=== PATIENT | female | born 1985 | race Caucasian/White ===

== ENCOUNTER → 2017-03-04 | Outpatient (CLI) | payer OTHER | END | disposition home or self-care (01) | LOC: C.LAB1850 16:03 | PROVIDERS: ATTEND Physician Assistant | DX: O09.299 Supervision of pregnancy with other poor reproductive or obstetric history, unspecified trimester (principal); Z3A.00 Weeks of gestation of pregnancy not specified ==

== ENCOUNTER → 2017-03-24 | Outpatient (CLI) | payer OTHER ==
[2017-03-24 16:09] LABS: URINE APPEARANCE CLEAR (CLEAR); URINE BILIRUBIN NEG (NEG); URINE COLOR YELLOW; URINE NITRITE NEG (NEG); URINE SPECIFIC GRAVITY 1.012 (1.000-1.030); UROBILINOGEN NEG (NEG)
[2017-03-24 16:22] LABS: MANUAL MICROSCOPIC REQUIRED? NO; REVIEW REQ? NO
== END | disposition home or self-care (01) ==
LOC: C.LABSPEC 15:41
PROVIDERS: ATTEND Obstetrics & Gynecology
DX: O09.299 Supervision of pregnancy with other poor reproductive or obstetric history, unspecified trimester (principal); Z3A.00 Weeks of gestation of pregnancy not specified

== ENCOUNTER → 2017-03-31 | Outpatient (CLI) | payer OTHER ==
[2017-03-31 17:48] LABS: BASO % 0.3 %; BASO ABS # 0.03 K/uL (0-0.2); COMPLETE YES; EOS % 0.7 %; HEMATOCRIT 38.9 % (37-47); IG% 0.3 %; LYMPH % 14.8 %; LYMPH ABS # 1.65 K/uL (1.2-3.4); MEAN CELL VOLUME 92.8 fL (80-100); MEAN CORPUSCULAR HEMOGLOBIN 31.7 pg (25-34); MEAN CORPUSCULAR HGB CONC 34.2 g/dl (32-36); MEAN PLATELET VOLUME 10.6 fL (7.4-10.4); MONO % 5.5 %; NEUT % 78.4 %; PLATELET COUNT 223 K/uL (130-400); RED BLOOD COUNT 4.19 M/uL (4.2-5.4); WHITE BLOOD COUNT 11.18 K/uL (4.8-10.8)
[2017-04-03 01:46] LABS: CHLAMYDIA TRACH RNA*** NOT DETECTED (NOT DETECTED); GC (NEIS GONORRHOEAE)RNA** NOT DETECTED (NOT DETECTED)
== END | disposition home or self-care (01) ==
LOC: C.LAB1850 16:18
PROVIDERS: ATTEND Obstetrics & Gynecology
DX: O09.299 Supervision of pregnancy with other poor reproductive or obstetric history, unspecified trimester (principal); Z3A.00 Weeks of gestation of pregnancy not specified

== ENCOUNTER → 2017-05-05 | Outpatient (CLI) | payer OTHER ==
[2017-05-05 19:08] LABS: GTGD 50 Grams
== END | disposition home or self-care (01) ==
LOC: C.LAB1850 14:22
PROVIDERS: ATTEND Obstetrics & Gynecology
DX: Z34.82 Encounter for supervision of other normal pregnancy, second trimester (principal); Z3A.00 Weeks of gestation of pregnancy not specified

== ENCOUNTER → 2017-06-05 | Outpatient (CLI) | payer OTHER ==
[~2017-06-05] MED LIST: PREN1TAB29
== END | disposition home or self-care (01) ==
LOC: C.LAB1850 11:18
PROVIDERS: ATTEND Obstetrics & Gynecology
DX: R39.9 Unspecified symptoms and signs involving the genitourinary system (principal)

== ENCOUNTER → 2017-08-01 | Outpatient (CLI) | payer OTHER ==
[2017-08-01 13:11] LABS: HEMATOCRIT 34.4 % (37-47); HEMOGLOBIN 11.7 g/dL (12.0-16.0)
== END | disposition home or self-care (01) ==
LOC: C.LAB1850 12:01
PROVIDERS: ATTEND Obstetrics & Gynecology
DX: Z34.83 Encounter for supervision of other normal pregnancy, third trimester (principal)

== ENCOUNTER → 2017-08-01 | Outpatient (CLI) | payer OTHER | END | disposition home or self-care (01) | LOC: C.LABSPEC 15:50 | PROVIDERS: ATTEND Obstetrics & Gynecology | DX: Z34.83 Encounter for supervision of other normal pregnancy, third trimester (principal) ==

== ENCOUNTER → 2017-09-08 | Outpatient (CLI) | payer OTHER | END | disposition home or self-care (01) | LOC: C.LAB 11:52 | PROVIDERS: ATTEND Obstetrics & Gynecology | DX: Z34.83 Encounter for supervision of other normal pregnancy, third trimester (principal) ==

== ENCOUNTER → 2017-09-25 | Outpatient (CLI) | payer OTHER | END | disposition home or self-care (01) | LOC: C.LABSPEC 15:54 | PROVIDERS: ATTEND Obstetrics & Gynecology | DX: O09.299 Supervision of pregnancy with other poor reproductive or obstetric history, unspecified trimester (principal); Z3A.00 Weeks of gestation of pregnancy not specified ==

== ENCOUNTER 2020-06-16 20:19 | Inpatient (IN) ==
[2020-06-16] MEDS ORDERED: OXYTOCIN 30 UNITS/500 ML BAG IV PRN (20:57)
[2020-06-16] MEDS ORDERED: LACTATED RINGER'S 1,000 ML IV PRN (20:57)
[2020-06-16] MEDS ORDERED: METHYLERGONOVINE MALEATE 0.2 MG/ML AMP IM PRN (20:57)
[2020-06-16] MEDS ORDERED: SODIUM CHLORIDE 0.9% INJ 10 ML VIAL ONE (21:04)
[2020-06-16] MEDS ORDERED: ePHEDrine sulfate 50 MG/ML AMP ONE (21:04)
[2020-06-16] MEDS ORDERED: BUPIVACAINE 0.25% 30 ML VIAL ONE (21:05)
[2020-06-16] MEDS ORDERED: fentaNYL citrate 100 MCG/2 ML VIAL ONE (21:05)
[2020-06-16] MEDS ORDERED: fentaNYL 2MCG/ML ROPIVACAINE 1.25MG/ML 100 ML BAG EPI ONE (21:06)
[2020-06-16 21:24] LABS: Hemoglobin 12.2 g/dL (12.0-16.0); Mean Corpuscular Hemoglobin 33.1 pg (25-34); Mean Corpuscular Hgb Conc 34.9 g/dL (32-36); Mean Corpuscular Volume 94.9 fL (80-100); Mean Platelet Volume 9.6 fL (7.4-10.4); Platelet Count 284 K/uL (130-400); RDW Coefficient of Variation 13.4 % (11.5-14.5); RDW Standard Deviation 46.5 fL (36.4-46.3); Red Blood Count 3.69 M/uL (4.2-5.4); White Blood Count 19.43 K/uL (4.8-10.8)
--- NOTE | 2020-06-16 22:07 | Anesthesiology Consultation ---
Date of Service June 16, 2020 Assessment & Plan Chart Review Chart Review: Acceptable Risk for Labor Epidural Consults Requested none History Allergies Allergy/AdvReac Type Severity Reaction Status Date / Time No Known Drug Allergies Allergy Verified 06/14/20 10:08 Medications Home Medications Medication Instructions Recorded Confirmed Last Taken prenat.vits,angeline,oih-[id number]-oikgh 1 tab PO DAILY 11/11/19 06/14/20 Unknown ascorbic acid (vitamin C) PO DAILY 05/10/20 06/14/20 Unknown ferrous sulfate PO DAILY 05/10/20 06/14/20 Unknown nystatin-triamcinolone 100,000 1 applic TOPICAL DAILY #30 g 05/24/20 06/14/20 Unknown unit/gram-0.1 % topical ointment valacyclovir 500 mg tablet 500 mg PO DAILY #30 tab 05/24/20 06/14/20 Unknown docusate sodium PO 06/14/20 06/14/20 Unknown Active Medications Generic Name Dose Route Start Last Admin Trade Name Freq PRN Reason Stop Dose Admin Lactated Ringer's 1,000 mls @ 125 mls/hr 06/16/20 20:57 06/16/20 20:45 Lr IV 06/18/20 20:56 999 mls/hr .Q8H PRN Administration L&D Protocol Protocol Past Medical History Medical History Cervical cancer screening Encounter for anatomic survey Heart murmur Hx of varicella PCOS (polycystic ovarian syndrome) Post-dates Vaginal delivery Past Family History Family History Grandmother Stroke Cerebral palsy Other Cancer Diabetes Dyslipidemia Hypertension Past Surgical History Surgical History H/O dilation and curettage Social History Smoking Status: Never smoker Hx Alcohol Use: No Hx Substance Use: No Physical Exam Vital Signs Last Vital Signs Temp 36.7 C 06/16/20 20:31 Pulse 75 06/16/20 22:06 Resp 18 06/16/20 20:31 BP 108/55 L 06/16/20 22:06 Pulse Ox 100 06/16/20 22:01 Testing Laboratory Results 06/16/20 21:12
[2020-06-16] MEDS ORDERED: fentaNYL 2MCG/ML ROPIVACAINE 1.25MG/ML 100 ML BAG EPI PRN (22:09)
[2020-06-16] MEDS ORDERED: NALOXONE HCL 1 MG in SODIUM CHLORIDE 0.9% 1000ML 1,000 ML IV PRN (22:09)
[2020-06-16] MEDS ORDERED: diphenhydrAMINE 50 MG/ML VIAL IV PRN (22:09)
[2020-06-16] MEDS ORDERED: NALOXONE HCL 0.4 MG/1 ML VIAL/CARP IV PRN (22:09)
[2020-06-16] MEDS ORDERED: ONDANSETRON INJ 2 MG/ML 2 ML VIAL IV PRN (22:09)
[2020-06-16] MEDS ORDERED: ePHEDrine sulfate 50 MG/ML AMP IV PRN (22:09)
--- NOTE | 2020-06-17 00:43 | Delivery Summary ---
Vaginal Delivery Summary Date of Service June 17, 2020 Spontaneous vaginal delivery the patient arrived in active labor she was multipa sheela requested epidural rapidly progressed to fully dilated spontaneously ruptured for thin meconium delivered in occiput anterior position there was no nuchal cord mouth and then nares were suctioned with bulb before delivery of the body baby was delivered with gentle traction no excessive force used live vigorous female cord clamped and cut cord gases obtained cord blood obtained placenta removed with gentle traction second-degree tear with repair with 3-0 Vicryl a small skin tag was removed with the patient request as well. Sponge and instrument counts were correct estimated blood was loss was 200 mL oxytocin had been used after delivery of the placenta Vaginal Delivery Summary and 2nd Degree LAC [facility] Vaginal Delivery Charge Vaginal Delivery Codes: 36490 global code for the antepartum, delivery, and post- Delivery Type Details: and 2nd Degree LAC
[2020-06-17] MEDS ORDERED: bisacodyL 10 MG SUPP PR PRN (01:32)
[2020-06-17] MEDS ORDERED: OXYTOCIN 30 UNITS/500 ML BAG IV PRN (01:32)
[2020-06-17] MEDS ORDERED: DIPHTHERIA/TETANUS/PERTUSSIS 0.5 ML SYR/VIAL IM ONE (01:32)
[2020-06-17] MEDS ORDERED: BENZOCAINE 20% AER SPR 82.5 GM CAN EXT PRN (01:32)
[2020-06-17] MEDS ORDERED: SUPERCREAM 0.870% 15 GM JAR EXT PRN (01:32)
[2020-06-17] MEDS ORDERED: HYDROCORTISONE ACETATE 25 MG SUPP PR PRN (01:32)
[2020-06-17] MEDS ORDERED: ACETAMINOPHEN 325 MG TAB PO PRN (01:32)
[2020-06-17] MEDS ORDERED: oxyCODONE/ACETAMINOPHEN 5mg/325mg TAB PO PRN (01:32)
[2020-06-17 01:39] LABS: Base Excess Cord Venous Blood -3.2 mEq/L (-7.7-1.9); Cord Venous Blood HCO3 25 mmol/L (18.4-26.8); Cord Venous Blood PCO2 55 mmHg (30.4-57.2); Cord Venous Blood PO2 15 mmHg (14.1-43.3); Cord Venous Blood pH 7.27 (7.20-7.44)
[2020-06-17 01:40] LABS: Base Excess Cord Arterial Bld -2.4 mEq/L (-9-1.8); CO2 Cord Arterial Blood 46 mmHg (39.1-73.5); HCO3 Cord Arterial Blood 24 mmol/L (19.7-28.5); O2 Saturation Cord Venous Bld < 60.0 % (<68); PO2 Cord Arterial Blood 24 mmHg (4.1-31.7); pH Cord Arterial Blood 7.33 (7.1-7.38)
[2020-06-17 01:41] LABS: Oxygen Sat Cord Arterial Blood < 60.0 % (<60)
[2020-06-17] MEDS: IBUPROFEN 600 MG TAB PO PRN ×5 (02:25→22:29)
--- NOTE | 2020-06-17 07:23 | Obstetrical Progress Note ---
Date of Service June 17, 2020 Assessment & Plan (1) Supervision of normal intrauterine in multigravida: PPD 0, well Subjective Ambulation: ambulating normally Voiding: no voiding problems Passing Gas:: Yes Diet Tolerance:: regular diet Lochia:: Small Feeding Type:: breast feeding Physical Exam Ext neg Results & Data ([facility]) Vital Signs (Past 12 Hours) Vital Signs Temp Pulse Pulse Resp BP BP Pulse Ox 06/17/20 04:00 99.0 F 76 18 98/70 L 06/17/20 03:15 75 18 102/52 L 06/17/20 03:00 71 96/51 L 06/17/20 02:44 71 104/56 L 06/17/20 02:30 83 102/58 L 06/17/20 02:15 68 98/53 L 06/17/20 02:14 18 06/17/20 02:00 67 98/51 L 06/17/20 01:45 82 18 101/51 L 06/17/20 01:29 71 18 110/55 L 06/17/20 01:16 18 06/17/20 00:58 87 18 122/51 L 06/17/20 00:42 98.1 F 81 18 102/56 L 06/17/20 00:21 72 98 06/17/20 00:16 72 97 06/17/20 00:12 82 106/58 L 06/17/20 00:11 76 98 06/17/20 00:06 72 97 06/17/20 00:01 71 96 06/16/20 23:58 73 106/51 L 06/16/20 23:56 74 97 06/16/20 23:52 90 93 06/16/20 23:51 86 98 06/16/20 23:46 80 97 06/16/20 23:43 81 110/56 L 06/16/20 23:41 81 98 06/16/20 23:36 83 98 06/16/20 23:31 75 98 06/16/20 23:28 81 98/51 L 06/16/20 23:26 75 99 06/16/20 23:21 92 H 88 L 06/16/20 23:16 86 98 06/16/20 23:11 81 113/54 L 98 06/16/20 23:06 85 98 06/16/20 23:01 87 98 06/16/20 23:00 18 06/16/20 22:58 84 116/55 L 06/16/20 22:56 92 H 99 06/16/20 22:51 95 H 97 06/16/20 22:47 99 H 93 06/16/20 22:46 92 H 96 06/16/20 22:42 83 103/50 L 06/16/20 22:41 84 96 06/16/20 22:36 87 97 06/16/20 22:31 85 97 06/16/20 22:30 20 06/16/20 22:26 84 98 06/16/20 22:24 85 103/54 L 06/16/20 22:21 86 105/51 L 98 06/16/20 22:18 81 106/51 L 06/16/20 22:16 83 98 06/16/20 22:15 80 102/52 L 06/16/20 22:12 83 111/55 L 06/16/20 22:11 88 98 06/16/20 22:09 82 107/52 L 06/16/20 22:06 91 H 108/55 L 98 06/16/20 22:03 90 103/56 L 06/16/20 22:01 75 100 06/16/20 22:00 76 91/53 L 06/16/20 21:57 86 112/57 L 06/16/20 21:56 73 100 06/16/20 21:54 65 113/65 06/16/20 21:51 66 100 06/16/20 21:46 83 100 06/16/20 21:41 73 100 06/16/20 21:00 98.1 F 18 06/16/20 20:31 98.1 F 18
--- NOTE | 2020-06-17 07:38 | Anesthesia Procedure Note ---
Date of Service June 17, 2020 Anesthesia Post Epidural Note Vital Signs Vital Signs: Temp Pulse Resp BP Pulse Ox 37.2 C 76 18 98/70 L 98 06/17/20 04:00 06/17/20 04:00 06/17/20 04:00 06/17/20 04:00 06/17/20 00:21 Pain Intensity Bilateral Episiotomy/Laceration: Pain Intensity: 2 Notes Mental Status: alert / awake / arousable and participated in evaluation Nausea / Vomiting: adequately controlled Pain: adequately controlled Airway Patency, RR, SpO2: stable & adequate BP & HR: stable & adequate Hydration State: stable & adequate Neuraxial Anesthesia: was administered and sensory block is resolving Anesthetic Complications: no major complications apparent and Pt Satisfied with anesthetic care Epidural: Removed without complications and With tip intact Notes: Epidural site clean, dry and intact. No signs of edema, erythema or bruising at insertion site. Pt instructed to request anesthesia if she has residual lower extremity numbness or if she develops lower extremity pain or weakness, back pain or headache.
[2020-06-17] MEDS: DOCUSATE SODIUM 100 MG CAP PO SCH ×2 (08:30→20:14)
[2020-06-17] MEDS: PRENATAL VITAMIN 1 TAB PO SCH (08:30)
[2020-06-18] MEDS: IBUPROFEN 600 MG TAB PO PRN ×2 (03:47→07:41)
[2020-06-18 06:26] LABS: Hematocrit (blood only) 29.8 % (37-47); Hemoglobin 10.3 g/dL (12.0-16.0); Mean Corpuscular Hemoglobin 33.2 pg (25-34); Mean Corpuscular Hgb Conc 34.6 g/dL (32-36); Mean Corpuscular Volume 96.1 fL (80-100); Mean Platelet Volume 9.6 fL (7.4-10.4); Platelet Count 257 K/uL (130-400); RDW Coefficient of Variation 13.6 % (11.5-14.5); RDW Standard Deviation 47.5 fL (36.4-46.3); White Blood Count 13.64 K/uL (4.8-10.8)
[2020-06-18] MEDS: DOCUSATE SODIUM 100 MG CAP PO SCH (07:41)
[2020-06-18] MEDS: PRENATAL VITAMIN 1 TAB PO SCH (07:41)
--- NOTE | 2020-06-18 08:01 | Obstetrical Progress Note ---
Date of Service June 18, 2020 Assessment & Plan (1) Normal vaginal delivery: Doing well. Plan d/c. Instructions given. f/u 6 weeks. Day #:: 2 Subjective Ambulation: ambulating normally Voiding: no voiding problems Passing Gas:: Yes Diet Tolerance:: regular diet Lochia:: Small Feeding Type:: breast feeding Physical Exam Constitutional WD/WN, vitals as above Respiratory normal respiratory effort, lungs clear to auscultation Cardiovascular RRR, no murmur, no edema Extremities: no edema Gastrointestinal (Abdomen) sof, nt , nd, ff/nt at u Psychiatric A+Ox3, euthymic affect Results & Data ([facility]) Vital Signs (Past 12 Hours) Vital Signs Temp Pulse Resp BP 06/18/20 01:00 37.3 C 58 L 18 103/56 L
[2020-06-18] MEDS ORDERED: bisacodyL 5 MG TABEC PO SCH (20:00)
== END 2020-06-18 11:40 | disposition home or self-care (01) | DRG 807 ==
LOC: OPB 20:19 → 4S1 20:30 → 4S2 06-17 03:30